=== PATIENT | female | born 1970 | race Caucasian/White ===

== ENCOUNTER → 2018-08-08 17:55 | Outpatient (CLI) | payer OTHER, SELFPAY ==
--- NOTE | 2018-08-08 17:57 | MRI_ITS ---
STUDY: MRI BRAIN WITHOUT CONTRAST REASON FOR EXAM: Female, 48 years old. Resting tremor TECHNIQUE: Standardized multiplanar fat and water weighted pulse sequences were obtained. COMPARISON: None. FINDINGS: Normal size of the ventricles and extra-axial spaces for the patient's age. Normal white matter tracts of the supratentorial brain. Normal bilateral basal ganglia. Normal thalami. There is no extra-axial fluid accumulation. Normal flow voids within the major intracranial circulation suggesting patency by spin echo criteria. Normal sella turcica, pituitary gland, infundibular stalk, optic chiasm and hypothalamus. Normal tectal plate and pineal gland. Normal midbrain, kaylen and medulla. Normal cerebellum. Normal basal cisterns. Normal bilateral temporal bones. Normal bilateral internal auditory canals. No demonstrated orbital abnormality, within the constraints of a routine brain study. Minor mucosal thickening in right maxillary and bilateral ethmoid sinuses greater on the right. Normal calvarium and skull base. Normal visualized soft tissue structures. Normal visualized upper cervical spine. MRI/Brain without Contrast IMPRESSION: Normal unenhanced MRI of the brain. Minor mucosal thickening in right maxillary and bilateral ethmoid sinuses greater on the right Electronically Signed: Jon Carrera MD at 18:50 EDT , Service support ,
== END ==
PROVIDERS: Family Provider Internal Medicine; PCP Internal Medicine; Referring Provider Internal Medicine; Visit Provider Internal Medicine
DX: R25.9 Unspecified abnormal involuntary movements (principal)
CPT/HCPCS: 70551

== ENCOUNTER → 2020-03-16 15:39 | Outpatient (CLI) | payer OTHER, SELFPAY ==
--- NOTE | 2020-03-16 15:47 | MRI_ITS ---
STUDY: MRI BRAIN WITH AND WITHOUT CONTRAST REASON FOR EXAM: Female, 50 years old. 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 IV DOTAREM 15ML was administered for the contrast portion of the examination. COMPARISON: ] MRI of the brain 08/08/2018 FINDINGS: Normal size of the ventricles and extra-axial spaces for the patient''s age. Normal white matter tracts of the supratentorial brain. Normal bilateral basal ganglia. Normal thalami. There is no extra-axial fluid accumulation. Normal flow voids within the major intracranial circulation suggesting patency by spin echo criteria. Normal venous enhancement. There is no enhancing intra-axial or extra-axial abnormality. Normal sella turcica, pituitary gland, infundibular stalk, optic chiasm and hypothalamus. Normal tectal plate and pineal gland. Normal midbrain, kaylen and medulla. Normal cerebellum. Normal basal cisterns. Normal bilateral temporal bones. Normal bilateral internal auditory canals. No demonstrated orbital abnormality, within the constraints of a routine brain study. Minor mucosal thickening of the ethmoid air cells. Normal calvarium and skull base. Normal visualized soft tissue structures. Normal visualized upper cervical spine. No significant change since prior exam MRI/Brain W/WO Contrast IMPRESSION: Normal unenhanced and enhanced MRI of the brain. Minor bilateral ethmoid sinus disease likely chronic Electronically Signed: Jon Carerra MD at 19:15 EST , Service support ,
== END ==
PROVIDERS: PCP Internal Medicine; Referring Provider Nurse Practitioner; Visit Provider Nurse Practitioner
DX: Q17.2 Microtia (principal)
CPT/HCPCS: 70553; A9575

== ENCOUNTER → 2020-04-08 17:40 | Outpatient (CLI) | payer OTHER, SELFPAY ==
--- NOTE | 2020-04-08 17:48 | MRI_ITS ---
STUDY: MRA NECK WITHOUT CONTRAST REASON FOR EXAM: Female, 50 years old. Vertigo and right-sided neck pain. Right-sided cochlear implant. TECHNIQUE: Source images were obtained, MIPs were performed. The study was performed unenhanced. COMPARISON: No relevant priors. FINDINGS: The origin and proximal portions of the bilateral CCAs and vertebral arteries are not included on the study. Right carotids: No significant narrowing of the visualized portion of the CCA or of the right ICA or ECA in the neck. Left carotids: No significant narrowing of the visualized portion of the CCA or of the left ICA or ECA in the neck. Vertebral arteries: No significant narrowing of the visualized portions of the vertebral arteries. Codominant. MRI/MRA Neck without Contrast IMPRESSION: No apparent flow-limiting arterial stenosis in the neck. Electronically Signed: Camilo Newton, at 23:29 EST Tel , Service support ,
--- NOTE | 2020-04-08 17:48 | MRI_ITS ---
STUDY: MRA OF THE HEAD WITHOUT CONTRAST REASON FOR EXAM: Female, 50 years old. vertigo, rt sided neck pain, rt cochlear implant rt ear since 2012 TECHNIQUE: 3-D [id number] (TOF) imaging was performed with MIPs. The study was performed unenhanced. COMPARISON: MRI brain 03/16/2020. FINDINGS: Intracranial carotids:Normal course and caliber. MCAs:No aneurysm or significant stenosis. ACAs:No aneurysm or significant stenosis. Basilar:Normal caliber. No aneurysm. 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 Fed by dominant P1 segments bilaterally. Smaller in caliber patent bilateral posterior communicating arteries are identified. Patent bilateral posterior and anterior inferior and superior cerebellar arteries are identified. No evidence of AVM or aneurysm. MRI/MRA Head ONLY without Contrast IMPRESSION: Normal MRI head. Electronically Signed: Camilo Newton, at 23:32 EST Tel , Service support ,
== END ==
PROVIDERS: PCP Internal Medicine; Referring Provider Otolaryngology; Visit Provider Otolaryngology
DX: R42 Dizziness and giddiness (principal)
CPT/HCPCS: 70544; 70547

== ENCOUNTER → 2020-04-21 07:26 | Outpatient (CLI) | payer OTHER, SELFPAY ==
--- NOTE | 2020-04-21 07:34 | MRI_ITS ---
STUDY: MRI CERVICAL SPINE WITH AND WITHOUT CONTRAST REASON FOR EXAM: Female, 50 years old. Av''s syndrome, VERTIGO, RIGHT SIDED NECK PAIN TECHNIQUE: Standardized fat and water weighted pulse sequences were obtained in the sagittal and axial following administration of IV Dotarem 13ml. COMPARISON: X-ray 03/09/2016 FINDINGS: Normal foramen magnum and brainstem-cervical cord junction. Normal craniovertebral junction. Normal anterior atlantoaxial articulation. Normal odontoid process. There is straightening of the normal cervical lordosis. Normal vertebral bodies and posterior osseous elements. C2-3: Normal endplates. Normal disc height, signal and morphology. Normal central canal and intervertebral neural foramina. C3-4: Normal endplates. Normal disc height, signal and morphology. Normal central canal and intervertebral neural foramina. C4-5: Mild bilobed disc osteophyte complex produces mild spinal stenosis and mild bilateral neural foraminal stenosis. C5-6: Moderate bilobed disc osteophyte complex produces moderate spinal stenosis with abutment of the central spinal cord and mild bilateral neural foraminal stenosis. C6-7: Moderate broad disc osteophyte complex asymmetric to the left produces moderate spinal stenosis with abutment of the left hemicord and mild bilateral neural foraminal stenosis. C7-T1: Normal endplates. Normal disc height, signal and morphology. Normal central canal and intervertebral neural foramina. Normal cervical cord. Normal visualized soft tissue structures. MRI/Spine Cervical W/WO Contrast IMPRESSION: Multilevel degenerative changes, as described above. Electronically Signed: Kareem Hinds MD at 9:35 EST Tel , Service support ,
== END ==
PROVIDERS: PCP Internal Medicine; Referring Provider Otolaryngology; Visit Provider Otolaryngology
DX: G90.2 Horner's syndrome (principal)
CPT/HCPCS: 72156; A9575

== ENCOUNTER → 2022-12-06 | Outpatient (CLI) | payer OTHER, SELFPAY ==
--- NOTE | 2022-12-06 16:38 | MRI_ITS ---
EXAM: MR RIGHT LOWER EXTREMITY WITHOUT INTRAVENOUS CONTRAST, FOOT CLINICAL INDICATION: PAIN IN RIGHT FOOT area of distal 2nd MT and 2nd toe, cortisone injection 2 wks ago TECHNIQUE: Multiplanar and multisequence MR images of the right foot without intravenous contrast. COMPARISON: No relevant prior studies available. FINDINGS: LIGAMENTS: MEDIAL COLLATERAL: Unremarkable. Intact. LATERAL COLLATERAL: Unremarkable. Intact. LISFRANC: Unremarkable. Intact. TENDONS: FLEXOR: Unremarkable. Intact. EXTENSOR: Unremarkable. Intact. PERONEAL: Unremarkable. Intact. TIBIALIS ANTERIOR: Unremarkable. Intact. TIBIALIS POSTERIOR: Unremarkable. Intact. MUSCLES: Unremarkable. No edema or myositis. FLUID: Small focal soft tissue lesion (0.7 x 0 5 cm) between the second and third proximal phalanx base is suggestive of a Alonso''s neuroma versus intermetatarsal bursitis alternatively. Further investigation with IV contrast could be useful. PLANTAR FASCIA: Unremarkable. Intact. BONES/JOINTS: Unremarkable. Normal forefoot alignment. No fracture. No joint effusion. No concerning bone marrow signal alterations. OTHER SOFT TISSUES: Thickened appearance of the nail of the first distal phalanx with signal alteration. MRI/Lower Ext/No Jt/w/o IMPRESSION: Small focal soft tissue lesion (0.7 x 0 5 cm) between the second and third proximal phalanx base is suggestive of a Alonso''s neuroma versus intermetatarsal bursitis alternatively. Further investigation with IV contrast could be useful. Electronically Signed: Antonio Parker MD at 21:52 EDT ,
== END | disposition home or self-care (01) ==
LOC: MRI 16:33
PROVIDERS: PCP Internal Medicine; Referring Provider Podiatrist; Visit Provider Podiatrist
DX: M79.671 Pain in right foot (principal)
CPT/HCPCS: 73718

== ENCOUNTER → 2023-01-05 | Outpatient (CLI) | payer OTHER, SELFPAY ==
--- NOTE | 2023-01-05 06:59 | EKG12_ITS ---
Test Reason : PRE OP Blood Pressure : / mmHG Vent. Rate : 060 BPM Atrial Rate : 060 BPM P-R Int : 124 ms QRS Dur : 080 ms QT Int : 418 ms P-R-T Axes : 063 058 048 degrees QTc Int : 418 ms Normal sinus rhythm Normal ECG Confirmed by KIYA EPPS, SADI ([id number]), acquisitions editor LEDY JORDAN ([id number]) on 01/09/2023 1:55:31 PM Referred By: Jon Loera Confirmed By:SADI HUERTAS MD
[2023-01-05 07:12] LABS: Absolute Lymphocyte Count 2.34 X10^3/uL (0.83-4.51); Absolute Neutrophil Count 2.5 X10^3/uL (2.0-7.7); Basophil# 0.03 X10^3/uL; Basophil% 0.6 % (0-1); Eosinophil# 0.17 X10^3/uL; Eosinophils% 3.2 % (0-5); Hematocrit 42.2 % (37-47); Hemoglobin 13.4 g/dL (12.0-15.0); Lymphocyte # 2.34 X10^3/ul (0.83-4.51); Lymphocyte % 43.5 % (19-41); Mean Corp Hgb Conc 31.8 g/dL (32-36); Mean Corpuscular Hgb 28.5 pg (27.0-32.0); Mean Corpuscular Volume 89.8 fL (81-99); Mean Platelet Vol. 10.6 fl (6.2-12.0); Monocyte# 0.29 X10^3/uL; Monocyte% 5.4 % (0-10); NRBC Flagged by Analyzer 0 % (0-5); Neutrophil # 2.53 X10^3/uL (2.7-7.7); Neutrophil % 46.9 % (47-70); Platelet Count 281 K/mm3 (150-450); RBC Distribution Width CV 12.9 % (11.6-14.6); RBC Distribution Width SD 42.6 fl (35.1-43.9); White Blood Count 5.4 K/mm3 (4.4-11.0)
[2023-01-05 07:25] LABS: International Normalized Ratio 0.9; Prothrombin Time (Protime)PT. 12.1 SECONDS (11.7-14.9)
--- NOTE | 2023-01-05 07:25 | RAD_ITS ---
EXAM: XR CHEST, 2 VIEWS CLINICAL INDICATION: PRE OP TECHNIQUE: Frontal and lateral views of the chest. COMPARISON: No relevant prior studies available. FINDINGS: LUNGS AND PLEURAL SPACES: Unremarkable. No consolidation or edema. No pneumothorax. No effusion. HEART: Unremarkable. Cardiac silhouette not enlarged. MEDIASTINUM: Central airways and mediastinal contour are unremarkable. BONES/JOINTS: Unremarkable. SOFT TISSUES: Unremarkable. RAD/Chest PA and Lateral IMPRESSION: No radiographic evidence of acute cardiopulmonary disease. Electronically Signed: Dipesh Sylvester MD at 7:32 EDT ,
[2023-01-05 07:26] LABS: Partial Thromboplast Time 29.2 Seconds (24.1-36.2)
[2023-01-05 07:37] LABS: Anion Gap 2 (5-15); BUN 15 mg/dL (7-18); BUN/Creat Ratio 16.6 RATIO (10-20); Calcium,Total 9.5 mg/dL (8.5-10.1); Chloride 110 mmol/L (98-107); EST Glomerular Filtration Rate 70 mL/min (>60); Est Glom Filt Rate - Afr Amer 84 mL/min (>60); Glucose 88 mg/dL (74-106); Potassium 4.1 mmol/L (3.5-5.1); Sodium Level 142 mmol/L (136-145)
== END | disposition home or self-care (01) ==
PROVIDERS: PCP Internal Medicine; Referring Provider Orthopaedic Surgery; Visit Provider Orthopaedic Surgery
DX: Z01.818 Encounter for other preprocedural examination (principal)
CPT/HCPCS: 36415; 71046; 80048; 85025; 85610; 85730; 93005